=== PATIENT | female | born 1980 | race Caucasian/White ===

== ENCOUNTER 2020-02-24 07:20 | Emergency (ER) | payer OTHER ==
[~2020-02-24] VITALS: Ht 162.6 cm; Wt 83.0 kg
[2020-02-24 07:28] VITALS: Ht 162.6 cm; Wt 83.0 kg
[2020-02-24 08:30] LABS: BASOPHIL % 0.7 % (0-2); PLATELET COUNT 298 x10^3mcL (130-400); RED CELL DISTRIBUTION WIDTH 13.5 % (11.5-14.5)
[2020-02-24 09:45] LABS: CALCIUM 8.7 mg/dL (8.5-10.1); CARBON DIOXIDE 23.8 mmol/L (21-32); CHLORIDE SERUM 103 mmol/L (98-107); CREATININE SERUM 0.7 mg/dL (0.6-1.0); GFR1 > 60 mL/min; GLUCOSE SERUM 99 mg/dL (74-106); POTASSIUM SERUM 3.8 mmol/L (3.5-5.1); SODIUM SERUM 138 mmol/L (136-145)
[2020-02-24 09:48] LABS: ALKALINE PHOSPHATASE 86 U/L (46-116); ALT/SGPT 37 U/L (14-59); AST/SGOT 20 U/L (15-37); BILIRUBIN TOTAL 0.3 mg/dL (0.20-1.00); C REACTIVE PROTEIN 3.6 mg/dL (<=0.9); TOTAL PROTEIN, SERUM 7.3 g/dL (6.4-8.2)
[2020-02-24 09:49] LABS: ALBUMIN 3.1 g/dL (3.4-5.0)
[2020-02-24 10:29] LABS: ERYTHROCYTE SED RATE 42 mm/hr (0-20)
[2020-02-24 10:45] VITALS: BP 151/87
== END 2020-02-24 10:45 | disposition home or self-care (01) ==
LOC: ED 07:20
PROVIDERS: Emergency Medicine
DX: R21 Rash and other nonspecific skin eruption (principal); T49.0X5A Adverse effect of local antifungal, anti-infective and anti-inflammatory drugs, initial encounter; Y92.89 Other specified places as the place of occurrence of the external cause